=== PATIENT | male | born 1960 | race Two or more races ===

== ENCOUNTER 2017-08-31 22:49 | Inpatient (IN) | payer MEDICAID, OTHER ==
[2017-08-31] MEDS: ONDANSETRON 4 MG INJ IV (23:07)
[2017-08-31] MEDS: morphine 4 MG/ML VIAL IV (23:07)
[2017-08-31 23:13] LABS: ADD MAN DIFF? NO
[2017-08-31 23:15] LABS: ABNORMAL IP MESSAGE 1; BASOPHIL # 0.1 10^3/ul (0.0-0.1); BASOPHILS % 0.4 % (0.0-2.0); EOSINOPHILS # 0.3 10^3/ul (0.0-0.5); EOSINOPHILS % 1.7 % (0.0-7.0); HEMATOCRIT 40.4 % (42.0-52.0); LYMPHOCYTES # 7.2 10^3/ul (0.8-2.9); LYMPHOCYTES % 43.1 % (15.0-51.0); MEAN CORPUSCULAR HEMOGLOBIN 30.9 pg (29.0-33.0); MEAN CORPUSCULAR HGB CONC 34.7 g/dl (32.0-37.0); MEAN CORPUSCULAR VOLUME 89.2 fl (82.0-101.0); MEAN PLATELET VOLUME 8.5 fl (7.4-10.4); MONOCYTE # 1.2 10^3/ul (0.3-0.9); MONOCYTES % 7.5 % (0.0-11.0); NEUTROPHIL # 7.8 10^3/ul (1.6-7.5); NEUTROPHILS % 46.9 % (39.0-77.0); PLATELET COUNT 215 10^3/UL (140-415); POSITIVE DIFF @See below; RED BLOOD COUNT 4.53 10^6/ul (4.70-6.10)
[2017-08-31 23:15] LABS: WHITE BLOOD COUNT 16.6 10^3/ul (4.8-10.8)
[2017-08-31] MEDS: HYDROmorphONE 1 MG/ML SYG IV (23:37)
[2017-09-01 00:09] LABS: ALANINE AMINOTRANSFERASE 34 IU/L (13-69); ALBUMIN 3.8 g/dl (3.3-4.9); ALBUMIN/GLOBULIN RATIO 1.31; ALKALINE PHOSPHATASE 80 IU/L (42-121); ANION GAP 12 (8-16); ASPARTATE AMINO TRANSFERASE 22 IU/L (15-46); BILIRUBIN,INDIRECT 0.1 mg/dl (0-1.1); BILIRUBIN,TOTAL 0.1 mg/dl (0.2-1.3); BLOOD UREA NITROGEN 25 mg/dl (7-20); CALCIUM 8.9 mg/dl (8.4-10.2); CARBON DIOXIDE 25 mmol/L (21-31); CHLORIDE 105 mmol/L (97-110); CREATININE 0.97 mg/dl (0.61-1.24); GLUCOSE 116 mg/dl (70-220); POTASSIUM 3.4 mmol/L (3.5-5.1); SODIUM 139 mmol/L (135-144); TOTAL PROTEIN 6.7 g/dl (6.1-8.1)
[2017-09-01] MEDS: SOD CHLORIDE 0.9% 1,000 ML IV ×2 (00:16→03:28)
[2017-09-01] MEDS: LORAZEPAM 2 MG INJ IV (00:16)
[2017-09-01] MEDS ORDERED: NITROGLYCERIN (SL) 0.4 MG TAB (00:40)
[2017-09-01] MEDS ORDERED: HEPARIN 5,000 UNIT/0.5 ML VIAL (00:40)
[2017-09-01] MEDS ORDERED: LIDOCAINE 1% (MDV) 20 ML INJ (00:44)
[2017-09-01 00:46] LABS: B-TYPE NATRIURETIC PEPTIDE 91 PG/ML (0-125)
[2017-09-01 00:48] LABS: TROPONIN-I 0.493 ng/ml (0.00-0.12)
[2017-09-01] MEDS ORDERED: BIVALIRUDIN 250MG /NS 50 ML 50 ML IVPB (01:09)
[2017-09-01] MEDS ORDERED: IODIXANOL LOCM 100 ML BTL (01:09)
[2017-09-01] MEDS ORDERED: IOHEXOL 350MG/ML 50 ML BTL (01:09)
[2017-09-01] MEDS ORDERED: TICAGRELOR 90 MG TABLET (01:09)
[2017-09-01] MEDS ORDERED: NORepinephrine 4 MG INJ (01:15)
[2017-09-01] MEDS ORDERED: CEFAZOLIN 1 GM/50 ML (PMX) 50 ML IVPB (01:46)
[2017-09-01] MEDS: HEPARIN 1000 UNITS/ML 10 ML INJ IV (01:46)
[2017-09-01] MEDS: HYDROmorphONE 1 MG/ML SYG IV (01:46)
[2017-09-01] MEDS: NITROGLYCERIN (SL) 0.4 MG TAB SL (01:47)
[2017-09-01] MEDS ORDERED: NORepinephrine 8MG/250 ML (PMX 250 ML (02:17)
[2017-09-01 02:19] LABS: ANISOCYTOSIS 1+ (0-0); BAND NEUTROPHILS #M 0.6 10^3/ul (0.0-0.6); BAND NEUTROPHILS % (M) 4 % (0-4); EOSINOPHILS % (M) 2 % (0-7); LYMPHOCYTES #M 5.1 10^3/ul (0.8-2.9); LYMPHOCYTES % (M) 31 % (15-51); METAMYELOCYTES #M 0.3 10^3/ul (0.0-0.0); METAMYELOCYTES %M 2 % (0-0); MICROCYTOSIS 1+ (0-0); MONOCYTE #M 0.6 10^3/ul (0.3-0.9); MONOCYTES % (M) 4 % (0-11); PLATELET ESTIMATE NORMAL; REACTIVE LYMPHOCYTES #M 0.4 10^3/ul (0.0-0.0); REACTIVE LYMPHOCYTES% (M) 3 % (0-0); SEG NEUT #M 9.1 10^3/ul (1.7-7.5); SEGMENTED NEUTROPHILS (M) % 54 % (39-77); SMUDGE%M 7 % (0-0)
[2017-09-01] MEDS ORDERED: morphine 2 MG INJ IV (02:30)
[2017-09-01] MEDS ORDERED: ACETAMINOPHEN 650MG/20.3ML CUP PO (02:30)
[2017-09-01] MEDS ORDERED: NITROGLYCERIN (SL) 0.4 MG TAB SL (02:30)
[2017-09-01] MEDS ORDERED: ONDANSETRON 4 MG INJ IV (02:30)
[2017-09-01 02:59] LABS: ADD MAN DIFF? NO
[2017-09-01 03:01] LABS: BASOPHIL # 0.1 10^3/ul (0.0-0.1); BASOPHILS % 0.4 % (0.0-2.0); EOSINOPHILS % 0.2 % (0.0-7.0); HEMATOCRIT 44.3 % (42.0-52.0); LYMPHOCYTES % 11.8 % (15.0-51.0); MEAN CORPUSCULAR HEMOGLOBIN 31.3 pg (29.0-33.0); MEAN CORPUSCULAR HGB CONC 33.9 g/dl (32.0-37.0); MEAN CORPUSCULAR VOLUME 92.3 fl (82.0-101.0); MEAN PLATELET VOLUME 8.6 fl (7.4-10.4); MONOCYTE # 0.8 10^3/ul (0.3-0.9); MONOCYTES % 4.5 % (0.0-11.0); NEUTROPHIL # 14.2 10^3/ul (1.6-7.5); NEUTROPHILS % 82.6 % (39.0-77.0); PLATELET COUNT 231 10^3/UL (140-415)
[2017-09-01 03:01] LABS: WHITE BLOOD COUNT 17.2 10^3/ul (4.8-10.8)
[2017-09-01 03:25] LABS: ALANINE AMINOTRANSFERASE 41 IU/L (13-69); ALBUMIN 4.1 g/dl (3.3-4.9); ALBUMIN/GLOBULIN RATIO 1.41; ALKALINE PHOSPHATASE 100 IU/L (42-121); ANION GAP 14 (8-16); ASPARTATE AMINO TRANSFERASE 82 IU/L (15-46); BILIRUBIN,INDIRECT 0.2 mg/dl (0-1.1); BILIRUBIN,TOTAL 0.2 mg/dl (0.2-1.3); BLOOD UREA NITROGEN 21 mg/dl (7-20); CALCIUM 7.8 mg/dl (8.4-10.2); CARBON DIOXIDE 24 mmol/L (21-31); CHLORIDE 107 mmol/L (97-110); CREATININE 0.75 mg/dl (0.61-1.24); GLUCOSE 150 mg/dl (70-220); SODIUM 141 mmol/L (135-144)
[2017-09-01] MEDS: BIVALIRUDIN 250MG /NS 50 ML 50 ML IVPB ×2 (03:45→04:55)
[2017-09-01] MEDS ORDERED: LORAZEPAM 2 MG INJ IV (07:30)
[2017-09-01] MEDS: ASPIRIN 81 MG TAB PO (09:09)
[2017-09-01] MEDS: PANTOPRAZOLE 40 MG INJ IV (09:09)
[2017-09-01] MEDS: TICAGRELOR 90 MG TABLET PO ×2 (09:10→21:34)
[2017-09-01 09:42] LABS: CK INDEX 7.8; CREATINE KINASE 2104 IU/L (23-200)
[2017-09-01 09:55] LABS: ETHANOL < 10.0 mg/dl
[2017-09-01 14:32] LABS: CK INDEX 8.4; CREATINE KINASE 1897 IU/L (23-200)
[2017-09-01] MEDS ORDERED: ALBUTEROL/IPRATROPIUM (NEB) 3 ML AMP HHN (16:00)
[2017-09-01] MEDS: ATORVASTATIN 80 MG TAB PO (21:28)
[2017-09-02] MEDS: SOD CHLORIDE 0.9% 250 ML IV (00:30)
[2017-09-02] MEDS: PANTOPRAZOLE 40 MG INJ IV (05:34)
[2017-09-02 05:41] LABS: ADD MAN DIFF? NO
[2017-09-02 05:46] LABS: BASOPHIL # 0.1 10^3/ul (0.0-0.1); BASOPHILS % 0.5 % (0.0-2.0); EOSINOPHILS # 0.2 10^3/ul (0.0-0.5); EOSINOPHILS % 1.2 % (0.0-7.0); HEMATOCRIT 41.2 % (42.0-52.0); HEMOGLOBIN 14.2 g/dl (14.0-18.0); LYMPHOCYTES # 2.8 10^3/ul (0.8-2.9); LYMPHOCYTES % 21.4 % (15.0-51.0); MEAN CORPUSCULAR HEMOGLOBIN 31.3 pg (29.0-33.0); MEAN CORPUSCULAR HGB CONC 34.5 g/dl (32.0-37.0); MEAN CORPUSCULAR VOLUME 90.7 fl (82.0-101.0); MEAN PLATELET VOLUME 8.7 fl (7.4-10.4); MONOCYTE # 0.9 10^3/ul (0.3-0.9); MONOCYTES % 7.1 % (0.0-11.0); NEUTROPHILS % 69.5 % (39.0-77.0); PLATELET COUNT 186 10^3/UL (140-415); RED BLOOD COUNT 4.54 10^6/ul (4.70-6.10)
[2017-09-02 06:28] LABS: ANION GAP 9 (8-16); BLOOD UREA NITROGEN 13 mg/dl (7-20); CARBON DIOXIDE 27 mmol/L (21-31); CHLORIDE 108 mmol/L (97-110); CREATINE KINASE 483 IU/L (23-200); CREATININE 0.63 mg/dl (0.61-1.24); GLUCOSE 105 mg/dl (70-220); MAGNESIUM 2.1 mg/dl (1.7-2.5); POTASSIUM 3.8 mmol/L (3.5-5.1); SODIUM 140 mmol/L (135-144)
[2017-09-02] MEDS: ASPIRIN 81 MG TAB PO (08:55)
[2017-09-02] MEDS: TICAGRELOR 90 MG TABLET PO ×2 (08:58→21:33)
[2017-09-02] MEDS: ATORVASTATIN 80 MG TAB PO (20:32)
[2017-09-03] MEDS: PANTOPRAZOLE 40 MG INJ IV (05:16)
[2017-09-03] MEDS: ASPIRIN 81 MG TAB PO (08:49)
[2017-09-03] MEDS: TICAGRELOR 90 MG TABLET PO (08:51)
[2017-09-03 09:11] LABS: ADD MAN DIFF? NO
[2017-09-03 09:12] LABS: BASOPHIL # 0.1 10^3/ul (0.0-0.1); BASOPHILS % 0.7 % (0.0-2.0); EOSINOPHILS # 0.2 10^3/ul (0.0-0.5); EOSINOPHILS % 2.1 % (0.0-7.0); HEMATOCRIT 41.1 % (42.0-52.0); HEMOGLOBIN 14.7 g/dl (14.0-18.0); LYMPHOCYTES # 2.7 10^3/ul (0.8-2.9); LYMPHOCYTES % 25.1 % (15.0-51.0); MEAN CORPUSCULAR HEMOGLOBIN 32.1 pg (29.0-33.0); MEAN CORPUSCULAR HGB CONC 35.8 g/dl (32.0-37.0); MEAN CORPUSCULAR VOLUME 89.7 fl (82.0-101.0); MEAN PLATELET VOLUME 9.1 fl (7.4-10.4); MONOCYTE # 0.9 10^3/ul (0.3-0.9); MONOCYTES % 8.5 % (0.0-11.0); NEUTROPHIL # 6.8 10^3/ul (1.6-7.5); NEUTROPHILS % 63.3 % (39.0-77.0); PLATELET COUNT 197 10^3/UL (140-415); RED BLOOD COUNT 4.58 10^6/ul (4.70-6.10); RED CELL DISTRIBUTION WIDTH 13.2 % (11.5-14.5)
[2017-09-03 09:12] LABS: WHITE BLOOD COUNT 10.6 10^3/ul (4.8-10.8)
[2017-09-03 09:55] LABS: ANION GAP 9 (8-16); BLOOD UREA NITROGEN 15 mg/dl (7-20); CALCIUM 8.8 mg/dl (8.4-10.2); CARBON DIOXIDE 28 mmol/L (21-31); CHLORIDE 107 mmol/L (97-110); CREATININE 0.67 mg/dl (0.61-1.24); GLUCOSE 89 mg/dl (70-220); SODIUM 140 mmol/L (135-144)
[2017-09-04] MEDS ORDERED: INFLUENZA VIRUS VACCINE 0.5 ML SYG IM* (14:00)
== END 2017-09-03 18:10 | disposition home or self-care (01) | DRG 248 ==
LOC: E/R 22:49 → MS4 09-02 15:55 → SDS 09-01 00:10 → E/R 09-01 02:10 → ICU 09-01 02:10
PROC: 02703DZ Dilation of Coronary Artery, One Artery with Intraluminal Device, Percutaneous Approach (ICD-10-PCS; principal; 2017-09-01 00:57)
PROC: 4A023N7 Measurement of Cardiac Sampling and Pressure, Left Heart, Percutaneous Approach (ICD-10-PCS; 2017-09-01 00:57)
PROC: B2111ZZ Fluoroscopy of Multiple Coronary Arteries using Low Osmolar Contrast (ICD-10-PCS; 2017-09-01 00:57)
DX: I21.09 ST elevation (STEMI) myocardial infarction involving other coronary artery of anterior wall (principal); R57.0 Cardiogenic shock; D72.829 Elevated white blood cell count, unspecified; F17.200 Nicotine dependence, unspecified, uncomplicated; I25.10 Atherosclerotic heart disease of native coronary artery without angina pectoris; I25.5 Ischemic cardiomyopathy
CPT/HCPCS: 36415; 71045; 80048; 80053; 80306; 82550; 82553; 83735; 83880; 84484; 85025; 87081; 93005; 93306; 93458; 96374; 96375; 99291-25